=== PATIENT | male | born 2000 | race African-American/Black ===

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

== ENCOUNTER 2020-01-24 15:54 | Emergency (ER) | payer BC, OTHER ==
[2020-01-24 16:59] VITALS: BP 128/63
--- NOTE | 2020-01-24 17:43 | UC ---
Upper Extremity HPI - HPI Summary HPI Summary: 19 y/o male presents to the urgent care c/o Upper left arm pain in 6 days. The pain is upon extension. - History of Current Complaint Chief Complaint: UCUpperExtremity Stated Complaint: ARM PAIN Time Seen by Provider: 01/24/20 17:41 Hx Obtained From: Patient Pain Intensity: 8 - Allergies/Home Medications Allergies/Adverse Reactions: Allergies Allergy/AdvReac Type Severity Reaction Status Date / Time amoxicillin Allergy Vomiting Verified 01/24/20 16:59 Home Medications: Home Medications Insulin Aspart [Novolog 100 UNITS/ML 10 ML VIAL] 13 units SUBCUT AC PRN [History Confirmed 01/24/20] Insulin GLARGINE(*) [Lantus 100 units/ml 10 ml VIAL (*)] 24 units SUBCUT DAILY 01/22/16 [History Confirmed 01/24/20] Albuterol HFA INHALER* [Ventolin HFA Inhaler*] 2 puff INH Q4H PRN #1 mdi [Rx Confirmed 01/24/20] Cyclobenzaprine (NF) [Cyclobenzaprine 5 MG (NF)] 5 mg PO TID PRN #21 tab [Rx] PMH/Surg Hx/FS Hx/Imm Hx - Surgical History Surgical History: Yes Surgery Procedure, Year, and Place: oral surgery when small child - Family History Known Family History: Positive: None, Unknown - Social History Alcohol Use: None Substance Use Type: Marijuana Smoking Status (MU): Never Smoked Tobacco - Immunization History Most Recent Influenza Vaccination: 2017 Vaccination Up to Date: Yes Physical Exam Vital Signs: Initial Vital Signs Temp 98.8 F 01/24/20 16:56 Pulse 84 01/24/20 16:56 Resp 18 01/24/20 16:56 BP 128/63 01/24/20 16:56 Pulse Ox 100 01/24/20 16:56 Upper Extremity Course/Dx - Differential Dx/Diagnosis Differential Diagnosis/HQI/PQRI: Contusion, Fracture (Closed), Strain, Sprain Provider Diagnosis: Muscle spasm Discharge ED - Sign-Out/Discharge Documenting (check all that apply): Patient Departure - D/C home All imaging exams completed and their final reports reviewed: No Studies - Discharge Plan Condition: Stable Disposition: HOME Prescriptions: Cyclobenzaprine (NF) [Cyclobenzaprine 5 MG (NF)] 5 mg PO TID PRN #21 tab PRN Reason: Spasms - Muscle Patient Education Materials: Muscle Spasm (ED) Referrals: Chandan Driver MD [Primary Care Provider] - 3 Days [facility] [Provider Group] - 3 Days Additional Instructions: 1-Please take Tylenol PO q6hrs prn as directed to alleviate pain and swelling. Take Cyclobenzaprine PO as directed to alleviate muscle spasm. Please do not drive if it gives you too much drowsiness 2-Please apply ice, keep your arm immobilized with the GUILLAUME bandage and shoulder sling. Avoid strenuous exercise of heavy lifting. 3- Please f/u with [facility] in 3 days for further evaluation and treatment. - Billing Disposition and Condition Condition: STABLE Disposition: Home
== END 2020-01-24 18:21 | disposition home or self-care (01) ==
LOC: UCEAST 15:54
DX: M62.838 Other muscle spasm (principal); Z88.0 Allergy status to penicillin
CPT/HCPCS: 99213; G0463

== ENCOUNTER 2023-01-06 21:46 | Inpatient (IN) ==
[2023-01-06] MEDS ORDERED: NS 0.9% 1000 ml BAG 2,000 ML IV ONE (22:03)
[2023-01-06] MEDS ORDERED: Ondansetron 4 mg VIAL 2 MG/ML 2 ml VIAL IV ONE (22:18)
[2023-01-06 22:31] LABS: ABS Basophils 0.2 10^3/ul (0-0.2); ABS Lymphocytes 1.7 10^3/ul (1.0-4.8); ABS Monocytes 0.4 10^3/ul (0-0.8); ABS Neutrophils 12.3 10^3/ul (1.5-7.7); Hematocrit 51 % (42-52); Hemoglobin 15.7 g/dL (14.0-18.0); Lymphocyte % 11.9 %; Mean Corpuscular HGB Conc 31 g/dL (31-36); Mean Corpuscular Hemoglobin 27 pg (27-31); Mean Corpuscular Volume 88 fL (80-94); Mean Platelet Volume 8.6 fL (7.4-10.4); Platelet Count 385 10^3/uL (150-450); Red Blood Count 5.74 10^6 /uL (4.18-5.48); Red Cell Distribution Width 15 % (10-15); White Blood Count 14.5 10^3/uL (3.5-10.8)
[2023-01-06 22:56] LABS: ALT 12 U/L (7-52); Albumin 5.8 g/dL (3.2-5.2); Albumin/Globulin Ratio 1.7 (1-3); Alkaline Phosphatase 108 U/L (35-149); Blood Urea Nitrogen 22 mg/dL (6-24); Calcium 10.9 mg/dL (8.6-10.3); Chloride 93 mmol/L (101-111); Creatinine, Serum 1.23 mg/dL (0.67-1.17); Globulin 3.5 g/dL (2-4); Glucose 337 mg/dL (70-100); Sodium 134 mmol/L (135-145); Total Protein 9.3 g/dL (6.4-8.9); eGFR CKD-EPI 85.1 (>60)
[2023-01-06 23:14] LABS: Anion Gap 30 mmol/L (2-11); CO2 Carbon Dioxide 11 mmol/L (22-32)
[2023-01-06] MEDS ORDERED: Dextrose 50% Syringe 50 ml 25 GM/50 ML SYRINGE IV PUSH PRN (23:22)
[2023-01-06 23:52] LABS: Potassium Redraw 6.1 mmol/L (3.5-5.0)
[2023-01-07] MEDS ORDERED: Dextrose 50% Syringe 50 ml 25 GM/50 ML SYRINGE IV PUSH PRN ×3 (00:26→17:09)
[2023-01-07 00:35] LABS: Venous Bicarbonate HCO3 7.9 mmol/L (24-28)
[2023-01-07 00:53] LABS: Phosphorus 6.5 mg/dL (2.5-5.0)
[2023-01-07] MEDS ORDERED: Insulin Infusion 100unit/100mL 100 UNIT/100 ML BAG IV SCH (01:00)
[2023-01-07] MEDS ORDERED: NORMOSOL-R pH 7.4 1000 mL BAG 1,000 ML IV SCH (01:00)
[2023-01-07] MEDS ORDERED: D5W 1/2 NS 1000 ml BAG 1,000 ML IV SCH (01:00)
[2023-01-07 01:24] LABS: Urine Appearance Clear; Urine Bilirubin Negative (Negative); Urine Blood Negative (Negative); Urine Color Straw; Urine Glucose 3+(>=500 mg/dL) (Negative); Urine Ketones 2+ (Negative); Urine Nitrite Negative (Negative); Urine Protein 2+(100 mg/dL) (Negative); Urine Specific Gravity 1.021 (1.002-1.030); Urine Urobilinogen Negative (Negative)
[2023-01-07 01:27] LABS: Urine Bacteria Absent (Absent); Urine Red Blood Cell Trace(0-2/hpf) (Absent); Urine Squamous Epithelial Cell Present (Absent); Urine White Blood Cell Trace(0-5/hpf) (Absent)
[2023-01-07 01:31] LABS: Urine Chloride Concentration < 22 mmol/L; Urine Potassium Concentration 50.5 mmol/L; Urine Sodium Concentration 111 mmol/L
[2023-01-07 02:08] LABS: Urine Osmo 705 mOsm/kg (150-1150)
[2023-01-07] MEDS: Pantoprazole VIAL 40 MG VIAL IV SCH (02:52)
[2023-01-07] MEDS ORDERED: D10W 1000 ml BAG 1,000 ML IV SCH ×3 (03:00→05:27)
[2023-01-07 03:08] LABS: Blood Urea Nitrogen 18 mg/dL (6-24); Calcium 9.2 mg/dL (8.6-10.3); Chloride 107 mmol/L (101-111); Creatinine, Serum 1.01 mg/dL (0.67-1.17); Glucose 159 mg/dL (70-100); Sodium 137 mmol/L (135-145); eGFR CKD-EPI 107.8 (>60)
[2023-01-07 03:10] LABS: Anion Gap 19 mmol/L (2-11); CO2 Carbon Dioxide 11 mmol/L (22-32)
[2023-01-07 05:32] LABS: ABS Basophils 0.1 10^3/ul (0-0.2); ABS Eosinophils 0.1 10^3/ul (0-0.6); ABS Lymphocytes 3.6 10^3/ul (1.0-4.8); ABS Monocytes 0.9 10^3/ul (0-0.8); ABS Neutrophils 12.2 10^3/ul (1.5-7.7); Eosinophil % 0.4 %; Hematocrit 40 % (42-52); Hemoglobin 12.2 g/dL (14.0-18.0); Lymphocyte % 21.4 %; Mean Corpuscular HGB Conc 31 g/dL (31-36); Mean Corpuscular Hemoglobin 27 pg (27-31); Mean Corpuscular Volume 87 fL (80-94); Mean Platelet Volume 8.4 fL (7.4-10.4); Platelet Count 303 10^3/uL (150-450); Red Blood Count 4.56 10^6 /uL (4.18-5.48); Red Cell Distribution Width 15 % (10-15); White Blood Count 16.9 10^3/uL (3.5-10.8)
[2023-01-07 06:14] LABS: Calcium 8.9 mg/dL (8.6-10.3); Creatinine, Serum 0.89 mg/dL (0.67-1.17); Magnesium 1.9 mg/dL (1.9-2.7); Phosphorus 2.7 mg/dL (2.5-5.0); Potassium 4.1 mmol/L (3.5-5.0); eGFR CKD-EPI 124.3 (>60)
[2023-01-07] MEDS ORDERED: D5NS 0.9% 1000 ml BAG 1,000 ML IV SCH ×2 (09:00→10:04)
[2023-01-07 09:27] LABS: Free T4 0.83 ng/dL (0.61-1.12)
[2023-01-07 10:54] LABS: Calcium 9.5 mg/dL (8.6-10.3); Creatinine, Serum 0.86 mg/dL (0.67-1.17); Magnesium 1.8 mg/dL (1.9-2.7); Phosphorus 2.3 mg/dL (2.5-5.0); Potassium 3.9 mmol/L (3.5-5.0); eGFR CKD-EPI 125.6 (>60)
[2023-01-07] MEDS ORDERED: Magnesium Sulfate 2 gm BAG 2 GM/50 ML BAG IVPB ONE (11:16)
[2023-01-07] MEDS: Insulin GLARGINE 100 un/ml 10 ml VIAL SUBCUT SCH (12:09)
[2023-01-07] MEDS: KCL 10 MEQ/50 ML IVPREMIX 10 MEQ/50 ML BAG IV SCH ×3 (12:33→14:10)
[2023-01-07] MEDS ORDERED: Potassium Chlor 20 meq TAB.ER PO ONE (14:00)
[2023-01-07] MEDS: Ondansetron 4 mg VIAL 2 MG/ML 2 ml VIAL IV PRN (17:56)
[2023-01-07 19:07] LABS: Calcium 8.9 mg/dL (8.6-10.3); Creatinine, Serum 0.77 mg/dL (0.67-1.17); eGFR CKD-EPI 129.8 (>60)
[2023-01-07 19:16] LABS: Potassium 5.1 mmol/L (3.5-5.0)
[2023-01-07 20:39] LABS: Calcium 9.4 mg/dL (8.6-10.3); Creatinine, Serum 0.83 mg/dL (0.67-1.17); Potassium 4.3 mmol/L (3.5-5.0); eGFR CKD-EPI 126.9 (>60)
[2023-01-07] MEDS: Potassium & Sodium Phos 250 mg = 1 PACKET PO SCH (22:29)
[2023-01-08] MEDS: Pantoprazole VIAL 40 MG VIAL IV SCH (02:09)
[2023-01-08] MEDS ORDERED: Pantoprazole VIAL 40 MG VIAL IV SCH (03:00)
[2023-01-08 06:04] LABS: ABS Basophils 0.1 10^3/ul (0-0.2); ABS Eosinophils 0.1 10^3/ul (0-0.6); ABS Monocytes 0.6 10^3/ul (0-0.8); ABS Neutrophils 4.9 10^3/ul (1.5-7.7); Eosinophil % 1.1 %; Hematocrit 41 % (42-52); Hemoglobin 12.9 g/dL (14.0-18.0); Lymphocyte % 34.9 %; Mean Corpuscular HGB Conc 32 g/dL (31-36); Mean Corpuscular Hemoglobin 27 pg (27-31); Mean Corpuscular Volume 85 fL (80-94); Mean Platelet Volume 8.2 fL (7.4-10.4); Nucleated Red Blood Cells % 0.1; Platelet Count 300 10^3/uL (150-450); Red Blood Count 4.77 10^6 /uL (4.18-5.48); Red Cell Distribution Width 14 % (10-15); White Blood Count 8.7 10^3/uL (3.5-10.8)
[2023-01-08 06:21] LABS: Calcium 9.3 mg/dL (8.6-10.3); Creatinine, Serum 0.75 mg/dL (0.67-1.17); Magnesium 1.9 mg/dL (1.9-2.7); eGFR CKD-EPI 130.9 (>60)
[2023-01-08] MEDS: Potassium & Sodium Phos 250 mg = 1 PACKET PO SCH ×2 (09:18→20:05)
[2023-01-08] MEDS: Insulin GLARGINE 100 un/ml 10 ml VIAL SUBCUT SCH (09:20)
[2023-01-08] MEDS: Ondansetron 4 mg VIAL 2 MG/ML 2 ml VIAL IV PRN (10:38)
[2023-01-09 06:43] LABS: Calcium 9.4 mg/dL (8.6-10.3); Creatinine, Serum 0.63 mg/dL (0.67-1.17); Magnesium 1.8 mg/dL (1.9-2.7); Potassium 3.1 mmol/L (3.5-5.0); eGFR CKD-EPI 137.9 (>60)
[2023-01-09] MEDS ORDERED: Potassium EFFERVES 25 meq TAB PO ONE (08:16)
[2023-01-09] MEDS ORDERED: Magnesium Sulfate 2 gm BAG 2 GM/50 ML BAG IVPB ONE (08:17)
[2023-01-09] MEDS ORDERED: Insulin GLARGINE 100 un/ml 10 ml VIAL SUBCUT SCH (09:00)
[2023-01-09] MEDS ORDERED: Potassium Chlor 10 meq TAB PO ONE (09:38)
[2023-01-09 09:46] VITALS: BP 122/66
[2023-01-09] MEDS: Potassium & Sodium Phos 250 mg = 1 PACKET PO SCH (09:56)
[2023-01-09 12:58] LABS: Calcium 9.5 mg/dL (8.6-10.3); Creatinine, Serum 0.65 mg/dL (0.67-1.17); Potassium 4.5 mmol/L (3.5-5.0); eGFR CKD-EPI 136.6 (>60)
== END 2023-01-09 15:00 | disposition home or self-care (01) | DRG 420 ==
LOC: ED 21:46 → SUATTDRO 01-07 00:25 → EDHOLD 01-07 00:25 → ICU 01-07 02:01 → MEDTELE 01-07 18:56
PROVIDERS: ADMIT Internal Medicine Critical Care Medicine; ATTEND Internal Medicine